=== PATIENT | female | born 1955 | race Two or more races ===

== ENCOUNTER 2019-12-18 08:19 | Outpatient (CLI) | payer BC | END 2019-12-18 23:59 | disposition home or self-care (01) | LOC: STAR 08:19 | PROVIDERS: ATTEND Orthopaedic Surgery | DX: Z01.818 Encounter for other preprocedural examination (principal); M76.821 Posterior tibial tendinitis, right leg; R94.31 Abnormal electrocardiogram [ECG] [EKG] | CPT/HCPCS: 93005 ==

== ENCOUNTER → 2019-12-23 | Outpatient (CLI) | payer BC | END | disposition home or self-care (01) | LOC: STAR 09:42 | PROVIDERS: ATTEND Anesthesiology | DX: Z01.812 Encounter for preprocedural laboratory examination (principal); Z20.828 Contact with and (suspected) exposure to other viral communicable diseases | CPT/HCPCS: 36415; 87635 ==

== ENCOUNTER 2019-12-27 09:36 | Day surgery (SDC) | payer BC ==
[~2019-12-27] VITALS: Ht 170.2 cm; Wt 104.6 kg
[~2019-12-27 09:36] MED LIST: ACETAMINOPHEN 325 MG TABLET PO PRN; EPHEDRINE 50 MG/ML, 1ML IVPush PRN; KETOROLAC 30 MG/1 ML IV PRN; LABETALOL 5MG/ML, 20ML IV PRN; ONDANSETRON 2MG/ML, 2ML IVPush PRN; OXYcodone 5 MG/5 ML ORAL.SOL UDC PO PRN; hydrALAzine 20 MG/ML, 1ML IV PRN
[2019-12-27] MEDS ORDERED: CHLORHEXIDINE 15 ML UDC MM STA (09:47)
[2019-12-27] MEDS ORDERED: CHLORHEXIDINE 15 ML UDC ONE (09:53)
[2019-12-27] MEDS ORDERED: LIDOCAINE-MPF 1%, 2ML ONE (09:53)
[2019-12-27] MEDS ORDERED: LIDOCAINE-MPF 1%, 2ML INFIL STA (09:54)
[2019-12-27] MEDS ORDERED: LACTATED RINGERS 1,000 ML IV ONE (09:57)
[2019-12-27] MEDS ORDERED: BUPIVACAINE/PF 0.5% ONE (10:22)
[2019-12-27] MEDS ORDERED: LIDOCAINE/PF 1%, 30ML ONE (10:23)
[2019-12-27] MEDS ORDERED: DEXAMETHASONE 4 MG/ML, 1ML ONE (11:27)
[2019-12-27] MEDS ORDERED: MIDAZOLAM 1 MG/ML, 5ML ONE (11:27)
[2019-12-27] MEDS ORDERED: CEFAZOLIN 1,000 MG ONE (11:27)
[2019-12-27] MEDS ORDERED: PROPOFOL 10 MG/ML, 20ML ONE (11:27)
[2019-12-27] MEDS ORDERED: ONDANSETRON 2MG/ML, 2ML ONE (11:27)
[2019-12-27] MEDS ORDERED: KETOROLAC 30 MG/1 ML ONE (13:44)
[2019-12-27] MEDS ORDERED: FENTANYL PF 100 MCG/2ML ONE (13:44)
[2019-12-27] MEDS ORDERED: OXYcodone 5 MG/5 ML ORAL.SOL UDC ONE (13:44)
[2019-12-27] MEDS: FENTANYL PF 100 MCG/2ML IV PRN ×2 (13:48→13:54)
[2019-12-27] MEDS ORDERED: HYDROmorphone 1 MG/ML, 1ML INJ ONE (14:07)
[2019-12-27] MEDS: HYDROmorphone 1 MG/ML, 1ML INJ IVPush PRN ×3 (14:12→15:33)
== END 2019-12-27 16:00 | disposition home or self-care (01) ==
LOC: OUT 09:36
PROVIDERS: ATTEND Orthopaedic Surgery
DX: M21.41 Flat foot [pes planus] (acquired), right foot (principal); M76.821 Posterior tibial tendinitis, right leg; G89.18 Other acute postprocedural pain; M19.90 Unspecified osteoarthritis, unspecified site; Z79.1 Long term (current) use of non-steroidal anti-inflammatories (NSAID); Z79.899 Other long term (current) drug therapy; Z87.891 Personal history of nicotine dependence; Z91.040 Latex allergy status; Z88.5 Allergy status to narcotic agent; Z82.61 Family history of arthritis; Z83.3 Family history of diabetes mellitus
CPT/HCPCS: 27687; 27691; 28725; 64445; 64447; 73620; C1713; C1776; J0690; J1100; J1170; J1885; J2250; J2405; J2704; J3010; J7120; 76000